=== PATIENT | female | born 2000 | race American Indian/Alaskan Native ===

== ENCOUNTER 2021-03-03 06:32 | Emergency (ER) | payer SELFPAY ==
[2021-03-03 06:51] VITALS: BP 115/78
[2021-03-03 11:30] LABS: Bacteria,Urine 2+ /HPF (Negative); Bilirubin,Urine NEG (Negative); Blood,Urine NEG (Negative); Color,Urine Yellow (Yellow); Mucus,Urine 1+ /HPF; Protein,Urine <15 mg/dL mg/dL (Negative)
[2021-03-03 11:33] LABS: HCG Qualitative,Urine Negative (Negative)
== END 2021-03-03 08:01 ==
LOC: ED 06:32
DX: N89.9 Noninflammatory disorder of vagina, unspecified (principal); Z53.21 Procedure and treatment not carried out due to patient leaving prior to being seen by health care provider
CPT/HCPCS: 81001; 81025; 87086